=== PATIENT | male | born 2000 | race Two or more races ===

== ENCOUNTER 2024-09-25 10:03 | Emergency (ER) | payer SELFPAY ==
[~2024-09-25] VITALS: Ht 175.3 cm; Wt 60.0 kg
[2024-09-25 10:22] VITALS: O2SAT 98
[2024-09-25] MEDS ORDERED: IBUPROFEN 800MG TABLET PO ONE (12:30)
[2024-09-25] MEDS ORDERED: IBUP-2030 MT (13:27)
[2024-09-25] MEDS: IBUPROFEN 600MG TABLET PO NR (13:28)
[2024-09-25 13:31] VITALS: BP 125/70; PULSE 70; RESP 16; TEMP 37.00296; O2SAT 98
== END 2024-09-25 13:30 | disposition home or self-care (01) ==
LOC: ER 10:03
DX: R51.9 Headache, unspecified (principal)
CPT/HCPCS: 70486; 99284